=== PATIENT | female | born 1960 | race Two or more races ===

== ENCOUNTER 2020-02-15 09:24 | Emergency (ER) | payer MEDICAID ==
[~2020-02-15] VITALS: Ht 160 cm; Wt 86.2 kg
[~2020-02-15 09:24] MED LIST: ALBUAER3 IN; CITA10TA59 PO; LORA0.5T20 PO; TRIA75TA55 PO; VENL75CA3 PO
[2020-02-15 15:01] VITALS: BP 136/68
== END 2020-02-15 15:46 | disposition home or self-care (01) ==
LOC: ER 09:24
DX: J18.9 Pneumonia, unspecified organism (principal); I10 Essential (primary) hypertension; Z20.828 Contact with and (suspected) exposure to other viral communicable diseases
CPT/HCPCS: 36415; 71045; 87426